=== PATIENT | female | born 1955 | race African-American/Black ===

== ENCOUNTER 2020-05-03 20:30 | Emergency (ER) | payer OTHER, MEDICARE, SELFPAY ==
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
[2020-05-03 20:34] VITALS: BP 201/70; PULSE 109; RESP 20; TEMP 36.4; O2SAT 94
[2020-05-03] MEDS: IBUPROFEN 600 MG TABLET PO (21:00)
[2020-05-03] MEDS: HYDROcodone/acetaminophen (*CRX) 5-325 MG TABLET 1 TAB PO (21:00)
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
== END 2020-05-03 22:29 | disposition home or self-care (01) ==
PROVIDERS: Emergency Provider Emergency Medicine
DX: S39.92XA Unspecified injury of lower back, initial encounter (principal); M25.512 Pain in left shoulder; M48.14 Ankylosing hyperostosis [Forestier], thoracic region; M51.37 Other intervertebral disc degeneration, lumbosacral region; V43.52XA Car driver injured in collision with other type car in traffic accident, initial encounter
CPT/HCPCS: 72100; 73030; 99284; A9270

== ENCOUNTER 2023-07-02 16:23 | Emergency (ER) | payer MEDICARE, SELFPAY ==
--- NOTE | 2023-07-02 16:31 | ED.BACK ---
HPI - Back Pain/Injury General Chief Complaint: Back Pain/Injury Stated Complaint: back pain Time Seen by Provider: 07/02/23 16:32 Source: patient Mode of arrival: ambulatory Limitations: no limitations History of Present Illness HPI Narrative: Loan is a 68-year-old female patient presenting to the clinic today with complaints of mid low back pain that started 2 days ago. She reports she has feels as though she slept ladder rung. She is having mid to low back pain with muscle spasms. No injury. Denies any saddle anesthesia or loss of bowel or bladder. Related Data Home Medications Medication Instructions Recorded Confirmed enalapril maleate 20 mg tablet 05/03/20 pravastatin 20 mg tablet 05/03/20 pravastatin 20 mg tablet 05/03/20 sertraline 100 mg tablet mg 05/03/20 trazodone 50 mg tablet 05/03/20 triamterene 37.5 cap 05/03/20 mg-hydrochlorothiazide 25 mg capsule Allergies Allergy/AdvReac Type Severity Reaction Status Date / Time No Known Allergies Allergy Mild Unknown Uncoded 07/02/23 16:47 Review of Systems Review of Systems: Pertinent positives per HPI. Patient denies any fever, chills, rash, headache, visual changes, dizziness, cough, runny nose, sore throat, shortness of breath, chest pain, palpitations, nausea, vomiting, diarrhea, constipation, abdominal pain, or any urinary issues. [facility] Social History Social History Smoking status: Never smoker Alcohol intake: current Gender identity (if verbalized by the patient): Female Sexual Orientation (if Verbalized by the Patient): Straight or Heterosexual Comments At the time of my signature, I reviewed and agree with the nursing past medical, surgical, social, and family history. There is no relevant family history pertinent to the patient complaint. Exam Narrative: General: Well-developed, obese, in no apparent distress Head: Normocephalic, atraumatic. Cardio: Regular rate and rhythm, s1 and s2 normal, no murmur appreciated. Resp: Clear to auscultation bilaterally, no rhonchi, rales, wheezing or rubs. Musculoskeletal: No deformity, tender to palpation over the mid/lower back, grossly normal range of motion, bilateral lower muscle strength strong and equal, patellar reflexes 1+ bilaterally, peripheral pulse strong, no edema, no cyanosis, normal gait and station Course Course Emergency Course: Portions of this record may have been created with voice recognition software. Level of Care: Express Care Visit Vital Signs Vital signs: Vital signs reviewed MDM - Back Pain/Injury MDM Narrative Medical decision making narrative: At the time of visit patient is resting comfortably on the exam table. Patient appears to be nontoxic. Plan: I suspect the patient has mid to low back strain. Prescription for Flexeril and naproxen was sent to the pharmacy. Sedation precautions were reviewed. Supportive measures were discussed with the patient and they voiced understanding discharge instructions and agrees to treatment plan. Return precautions reviewed Differential Diagnosis Differential diagnosis: Likely lumbar radiculopathy, strain of lumbar region, thoracic back pain and discitis Discharge Plan Discharge Clinical Impression: Low back strain Qualifiers: Encounter type: initial encounter Qualified Code(s): S39.012A - Strain of muscle, fascia and tendon of lower back, initial encounter Patient Disposition: Home, Self-Care Condition: Stable Instructions: Antibiotic Form, Acute Low Back Pain (ED) Additional Instructions: Take any prescription medication only as prescribed-naproxen and cyclobenzaprine Be mindful of sedation precautions given to you if taking a muscle relaxer. May use heat or ice to the affected area Consider massage or chiropractor adjustment if this was discussed with provider May use blue emu, lidocaine patches, or asper cream
[2023-07-02 16:39] VITALS: BP 134/70; PULSE 81; RESP 16; TEMP 36.4; O2SAT 97
== END 2023-07-02 16:57 | disposition home or self-care (01) ==
PROVIDERS: Emergency Provider Nurse Practitioner Family
DX: S39.012A Strain of muscle, fascia and tendon of lower back, initial encounter (principal); X58.XXXA Exposure to other specified factors, initial encounter; E78.00 Pure hypercholesterolemia, unspecified; I10 Essential (primary) hypertension
CPT/HCPCS: 99203; G0463